=== PATIENT | male | born 1995 | race Caucasian/White ===

== ENCOUNTER 2017-05-12 06:44 | Emergency (ER) | payer SELFPAY | END 2017-05-12 07:30 | disposition home or self-care (01) | LOC: FER 06:44 | DX: M25.572 Pain in left ankle and joints of left foot (principal); F17.200 Nicotine dependence, unspecified, uncomplicated | CPT/HCPCS: 73610; 99283 ==

== ENCOUNTER 2021-01-07 23:14 | Emergency (ER) | payer OTHER ==
[~2021-01-07 23:14] MED LIST: MEDROL 4MG DOSEP4 MG PO
[2021-01-08 00:06] LABS: BASOPHIL 0.6 % (0-2); EOSINOPHIL 1.3 % (0-5); HCT 47.6 % (42.0-52.0); HGB 16.3 g/dl (13.2-18.0); LYMPHOCYTE 30.1 % (15-48); MCHC 34.2 g/dL (32.0-36.0); MCV 90.5 fL (78.0-100.0); MONOCYTE 7.9 % (0-12); NEUTROPHIL 59.8 % (41-80); NRBC 0; PLT 311 K/uL (150-400); RBC 5.26 M/uL (4.70-6.00); RDW 12.2 % (11.5-14.0); WBC 11.4 K/uL (4.0-10.5)
[2021-01-08 00:15] LABS: BILIRUBIN NEGATIVE (NEGATIVE); BLOOD NEGATIVE Ery/uL (NEGATIVE); CLARITY CLEAR (CLEAR); COLOR YELLOW (YELLOW); GLUCOSE (U) NORMAL (NORMAL); LEUKOCYTES NEGATIVE Leu/uL (NEGATIVE); NITRITE NEGATIVE (NEGATIVE); PROTEIN NEGATIVE (NEGATIVE); SPECIFIC GRAVITY >=1.030 (1.001-1.030); UROBILINOGEN 0.2 mg/dL (0.2-1.0)
[2021-01-08 00:22] LABS: BILIRUBIN - TOTAL 0.7 mg/dL (0.2-1.0); BUN/CREAT RATIO (CALC) 12.7 RATIO; CREATININE 1.18 mg/dL (0.67-1.17); GLOBULIN (CALCULATION) 3.9 g/dL; TOTAL PROTEIN 7.9 g/dL (6.4-8.2)
[2021-01-08] MEDS ORDERED: NORCO 5-325 TA1 EACH PO (01:16)
[2021-01-08] MEDS ORDERED: IBUPROFEN800 MG PO (01:16)
== END 2021-01-08 01:25 | disposition home or self-care (01) ==
LOC: FER 23:14
PROVIDERS: Emergency Medicine Emergency Medical Services
DX: R10.32 Left lower quadrant pain (principal); F17.210 Nicotine dependence, cigarettes, uncomplicated; Z87.820 Personal history of traumatic brain injury
CPT/HCPCS: 36415; 80053; 81003; 83605; 84145; 85025; J1885; J2405; Q9967

== ENCOUNTER 2022-07-02 04:47 | Emergency (ER) | payer OTHER ==
[~2022-07-02 04:47] MED LIST changes: +IBUPROFEN800 MG PO; +NORCO 5-325 TA1 EACH PO
[2022-07-02] MEDS ORDERED: IBUPROFEN800 MG PO (05:44)
[2022-07-02] MEDS ORDERED: NORCO 5-325 TA1 EACH PO (05:44)
== END 2022-07-02 05:15 | disposition home or self-care (01) ==
LOC: FER 04:47
DX: R07.81 Pleurodynia (principal); F17.210 Nicotine dependence, cigarettes, uncomplicated; Z28.310 Unvaccinated for COVID-19; W51.XXXA Accidental striking against or bumped into by another person, initial encounter; Y93.89 Activity, other specified
CPT/HCPCS: 71250